=== PATIENT | male | born 1990 | race Caucasian/White ===

== ENCOUNTER 2016-04-19 17:09 | Emergency (ER) | payer OTHER ==
[2016-04-19 17:13] VITALS: RESP 16; TEMP 97.3
--- NOTE | 2016-04-19 17:20 | EDPHY ---
H & P Stated Complaint: lower back pain for a couple of wks HPI/ROS: HPI CHIEF COMPLAINT: Low back pain HISTORY OF PRESENT ILLNESS: This patient very pleasant 25-year-old male denies any significant medical history he presents emergency room with left lower lateral back pain over the past week it has progressively gotten worse. He denies any focal injury. Patient denies any midline pain or saddle anesthesia , bowel or bladder incontinence, leg weakness, or radiation of pain down his leg. He describes the pain as a dull ache left lateral low lumbar region. Nonradiating. It is worse with leg raise as well as cross leg raise. Describes the pain as 6/10 left lateral lumbar region. patient denies complaints denies dysuria, urinary frequency, hematuria. Past Medical History: No significant medical history Past Surgical History: no significant surgical history Social History: denies daily use of drugs alcohol tobacco products Family History: noncontributory ROS REVIEW OF SYSTEMS: A comprehensive 10 point review of systems is otherwise negative aside from elements mentioned in the history of present illness. Exam Constitutional triage nursing summary reviewed, vital signs reviewed, awake/ alert. Eyes normal conjunctivae and sclera, EOMI, PERRLA. HENT normal inspection, atraumatic, moist mucus membranes, no epistaxis, neck supple/ no meningismus, no raccoon eyes. Respiratory clear to auscultation bilaterally, normal breath sounds, no respiratory distress, no wheezing. Cardiovascular rate normal, regular rhythm, no murmur, no edema, distal pulses normal. Gastrointestinal soft, non-tender, no rebound, no guarding, normal bowel sounds, no distension, no pulsatile mass. Genitourinary no CVA tenderness. Musculoskeletal tender palpation paravertebral low lumbar region left-sided, no midline vertebral tenderness, full range of motion, no calf swelling, no tenderness of extremities, no meningismus, good pulses, neurovascularly intact. Skin pink, warm, & dry, no rash, skin atraumatic. Neurologic awake, alert and oriented x 3, AAOx3, moves all 4 extremities equally, motor intact, sensory intact, CN II-XII intact, normal cerebellar, normal vision, normal speech. Psychiatric normal mood/affect. Heme/Lymph/Immune no lymphadenopathy. Differential Diagnosis: Includes but is not limited to in a particular order lumbar strain, annular tear, degenerative joint disease, sciatica, kidney stone Medical Decision Making: this patient had an IV established will be medicated with IV pain control Toradol 30 mg, patient will check a urinalysis for blood as I doubt this is a kidney stone given its low paravertebral lumbar region patient is agreeable for an x-ray of his lumbar spine to rule out compression fracture malalignment. He has no hard signs concerning for acute cauda equina syndrome. Will check blood work. Re-evaluation: ED x-ray: lumbar spine: negative for any acute malalignment or fracture there is muscle spasm seen. 1911: Re-evaluation at this time patient is resting comfortably does tell me that the Toradol did not really improve his pain is requesting more pain medicine. I have ordered him 50 mcg IV fentanyl and 4 mg IV Zofran. He is receiving normal saline. His urinalysis does show 1+ blood, due to this and flank pain he will have a CT abdomen pelvis without contrast rule out kidney stone. I still feel this is most likely lumbar radiculopathy. CT scan of the Abdomen pelvis without IV contrast. The results of the study are negative for acute inflammatory process specifically no kidney stone visualize The study was read by Dr. Lopez. I viewed the images myself on the PACS system. 2001: re-evaluation of this patient at this time Patient is resting comfortably went over the patient's CT scan results and x-ray blood work urinalysis. 1+ blood he will need to follow up with Urology for this. There is no evidence of kidney stone on the CT scan. Lumbar spine x-rays unremarkable. Patient will be discharged from the ER he is comfortable this plan he understands he needs to follow up his primary care doctor he has worsening back pain return to the emergency room. There is no signs of acute cauda equina syndrome at this time. Source: Patient - Personal History Current Tetanus/Diphtheria Vaccine: Unsure Current Tetanus Diphtheria and Acellular Pertussis (TDAP): Unsure - Medical/Surgical History Hx Asthma: No Hx Chronic Respiratory Disease: No Hx Diabetes: No Hx Cardiac Disease: No Hx Renal Disease: No Hx Cirrhosis: No Hx Alcoholism: No Hx HIV/AIDS: No Hx Splenectomy or Spleen Trauma: No Other PMH: DENIES - Social History Smoking Status: Never smoked Constitutional: Initial Vital Signs Temperature (C) 36.3 C 04/19/16 17:11 Heart Rate 58 L 04/19/16 17:11 Respiratory Rate 16 04/19/16 17:11 Blood Pressure 126/80 H 04/19/16 17:11 O2 Sat (%) 95 04/19/16 17:11 O2 Delivery Mode Room Air Allergies/Adverse Reactions: No Known Allergies Allergy (Unverified 08/05/14 15:05) Home Medications: Medication Instructions Recorded Dexamethasone [Decadron 4 MG (*)] 4 mg PO DAILY #4 tab 04/19/16 Diazepam [Valium 5 MG (*)] 5 mg PO TID PRN #15 tab 04/19/16 Hydrocodone/Acetaminophen 1 each PO Q4-6PRN PRN #20 tablet 04/19/16 [Hydrocodon-Acetaminophen 5-325] Ibuprofen [Motrin (*)] 800 mg PO Q6-8PRN #30 tab 04/19/16 Medical Decision Making - Data Points Laboratory Results: Laboratory Results 04/19/16 17:35 04/19/16 17:35 04/19/16 04/19/16 18:15 17:35 WBC 6.64 10^3/uL (3.80-9.50) RBC 5.17 10^6/uL (4.40-6.38) Hgb 14.9 g/dL (13.7-17.5) Hct 43.8 % (40.0-51.0) MCV 84.7 fL (81.5-99.8) MCH 28.8 pg (27.9-34.1) MCHC 34.0 g/dL (32.4-36.7) RDW 13.3 % (11.5-15.2) Plt Count 296 10^3/uL (150-400) MPV 10.5 fL (8.7-11.7) Neut % (Auto) 52.6 % (39.3-74.2) Lymph % (Auto) 37.2 % (15.0-45.0) [place] % (Auto) 7.5 % (4.5-13.0) Eos % (Auto) 1.7 % (0.6-7.6) Baso % (Auto) 0.8 % (0.3-1.7) Nucleat RBC Rel Count 0.0 % (0.0-0.2) Absolute Neuts (auto) 3.50 10^3/uL (1.70-6.50) Absolute Lymphs (auto) 2.47 10^3/uL (1.00-3.00) Absolute Monos (auto) 0.50 10^3/uL (0.30-0.80) Absolute Eos (auto) 0.11 10^3/uL (0.03-0.40) Absolute Basos (auto) 0.05 10^3/uL (0.02-0.10) Absolute Nucleated RBC 0.00 10^3/uL (0-0.01) Immature Gran % 0.2 % (0.0-1.1) Immature Gran # 0.01 10^3/uL (0.00-0.10) Sodium 140 mEq/L (134-144) Potassium 4.5 mEq/L (3.5-5.2) Chloride 103 mEq/L (97-110) Carbon Dioxide 26 mEq/l (22-31) Anion Gap 11 mEq/L (8-16) BUN 19 mg/dL (7-23) Creatinine 1.0 mg/dL (0.7-1.3) Estimated GFR > 60 Glucose 88 mg/dL (70-100) Calcium 9.5 mg/dL (8.5-10.4) Total Bilirubin 0.4 mg/dL (0.1-1.4) Conjugated Bilirubin 0.4 mg/dL (0.0-0.5) Unconjugated Bilirubin 0.0 mg/dL (0.0-1.1) AST 20 IU/L (17-59) ALT 34 IU/L (21-72) Alkaline Phosphatase 88 IU/L (38-126) Total Protein 7.3 g/dL (6.3-8.2) Albumin 4.5 g/dL (3.5-5.0) Urine Color PALE YELLOW Urine Appearance CLEAR Urine pH 6.0 (5.0-7.5) Ur Specific [place] 1.006 (1.002-1.030) Urine Protein NEGATIVE (NEGATIVE) Urine Ketones NEGATIVE (NEGATIVE) Urine Blood 1+ H (NEGATIVE) Urine Nitrate NEGATIVE (NEGATIVE) Urine Bilirubin NEGATIVE (NEGATIVE) Urine Urobilinogen NEGATIVE EU (0.2-1.0) Ur Leukocyte Esterase NEGATIVE (NEGATIVE) Urine RBC 1-3 /hpf (0-3) Urine WBC NONE SEEN /hpf (0-3) Ur Epithelial Cells TRACE /lpf (NONE-1+) Urine Mucus TRACE /lpf (NONE-1+) Ur Culture Indicated? NOT INDICATED (NI) Urine Glucose NEGATIVE (NEGATIVE) Medications Given: Discontinued Medications Fentanyl (Sublimaze) 50 mcg IVP EDNOW ONE Stop: 04/19/16 19:13 Last Admin: 04/19/16 19:19 Dose: 50 mcg Sodium Chloride (Ns) 1,000 mls @ 0 mls/hr IV ONCE ONE PRN Reason: Wide Open Stop: 04/19/16 17:32 Last Admin: 04/19/16 17:40 Dose: 1,000 mls Ketorolac Tromethamine (Toradol) 30 mg IVP EDNOW ONE Stop: 04/19/16 17:32 Last Admin: 04/19/16 17:47 Dose: 30 mg Ondansetron HCl (Zofran) 4 mg IVP EDNOW ONE Stop: 04/19/16 19:13 Last Admin: 04/19/16 19:19 Dose: 4 mg Departure - Departure Disposition: Home, Routine, Self-Care Clinical Impression: Low back pain Qualifiers: Chronicity: acute Back pain laterality: left Sciatica presence: without sciatica Qualifier Code: (M54.5) Low back pain Condition: Good Instructions: Acute Low Back Pain (ED), Lumbar Radiculopathy (ED) Additional Instructions: 1.Return to the emergency room if develops any worsening symptoms questions or concerns. 2. Please follow up with her primary care doctor you may need an MRI of her back. 3. Stay well-hydrated. Take [place] which is a narcotic for pain control, ibuprofen anti-inflammatory, Decadron as a steroid, and Valium as a muscle relaxant please be advised these medications can make her sleepy do not drive or drink alcohol while taking them. Referrals: Alex Ceron MD [Primary Care Provider] - As per Instructions Lito Ambriz MD [Medical Doctor] - As per Instructions Prescriptions: Dexamethasone [Decadron 4 MG (*)] 4 mg PO DAILY #4 tab Hydrocodone/Acetaminophen [Hydrocodon-Acetaminophen 5-325] 1 each PO Q4-6PRN PRN #20 tablet PRN Reason: Pain, Breakthrough Ibuprofen [Motrin (*)] 800 mg PO Q6-8PRN #30 tab Diazepam [Valium 5 MG (*)] 5 mg PO TID PRN #15 tab PRN Reason: Spasms
[2016-04-19] MEDS ORDERED: NS 1,000 ML IV ONE (17:31)
[2016-04-19] MEDS ORDERED: KETOROLAC 30 MG/1 ML SDV IVP ONE (17:31)
[2016-04-19 17:54] LABS: % IMMATURE GRANULYOCYTES 0.2 % (0.0-1.1); ABSOLUTE IMMATURE GRANULOCYTES 0.01 10^3/uL (0.00-0.10); ADD DIFF? NO; ADD MORPH? NO; ADD SCAN? NO; ATYPICAL LYMPHOCYTE FLAG 30 (0-99); FRAGMENT RBC FLAG 0 (0-99); HEMATOCRIT 43.8 % (40.0-51.0); HEMOGLOBIN 14.9 g/dL (13.7-17.5); LEFT SHIFT FLG 0 (0-99); LIPEMIA HEMOLYSIS FLAG 90 (0-99); MEAN CELL HEMOGLOBIN 28.8 pg (27.9-34.1); MEAN CELL VOLUME 84.7 fL (81.5-99.8); MEAN PLATELET VOLUME 10.5 fL (8.7-11.7); PLATELET CLUMPS FLAG 10 (0-99); PLATELET COUNT 296 10^3/uL (150-400); RED BLOOD CELL COUNT 5.17 10^6/uL (4.40-6.38); RED CELL DISTRIBUTION WIDTH 13.3 % (11.5-15.2)
--- NOTE | 2016-04-19 18:08 | DX ---
Lumbar Spine, 4 Views, at 5:23 p.m. Clinical History: 25-year-old male with low back pain for 2 weeks, and no known injury. Comparison Study: None. Findings: There are 5 nonrib-bearing lumbar type vertebral bodies. The vertebral body heights and pos terior alignments are maintained. The disc spaces are preserved. There is straightening of the normal lumbar lordosis, which may reflect underlying muscle spasm. The interpediculate distances are approp riate. There are no pars interarticularis defects or facet malalignment. The sacral arcuate lines are well-contoured, and the SI joints appear normal. Impression: Secondary features suggestive of underlying muscle spasm.
[2016-04-19 18:10] LABS: ALANINE AMINOTRANSFERASE 34 IU/L (21-72); ALBUMIN 4.5 g/dL (3.5-5.0); ALKALINE PHOSPHATASE 88 IU/L (38-126); ANION GAP 11 mEq/L (8-16); ASPARTATE AMINOTRANSFERASE 20 IU/L (17-59); BILIRUBIN,TOTAL 0.4 mg/dL (0.1-1.4); BILIRUBIN-CONJUGATED 0.4 mg/dL (0.0-0.5); CALCIUM 9.5 mg/dL (8.5-10.4); CARBON DIOXIDE 26 mEq/l (22-31); CHLORIDE 103 mEq/L (97-110); GLOMERULAR FILTRATION RATE > 60; GLUCOSE 88 mg/dL (70-100); POTASSIUM 4.5 mEq/L (3.5-5.2); SODIUM 140 mEq/L (134-144); TOTAL PROTEIN 7.3 g/dL (6.3-8.2)
[2016-04-19 18:40] LABS: COLOR PALE YELLOW; LEUKOCYTE ESTERASE,URINE NEGATIVE (NEGATIVE); NITRITE,URINE NEGATIVE (NEGATIVE)
[2016-04-19 18:44] LABS: MUCUS TRACE /lpf (NONE-1+); WBC,URINE NONE SEEN /hpf (0-3)
[2016-04-19] MEDS ORDERED: fentaNYL 100 MCG/2 ML INJ ONE (19:10)
[2016-04-19] MEDS ORDERED: ONDANSETRON 4 MG/2 ML VIAL ONE (19:10)
[2016-04-19] MEDS ORDERED: fentaNYL 100 MCG/2 ML INJ IVP ONE (19:12)
[2016-04-19] MEDS ORDERED: ONDANSETRON 4 MG/2 ML VIAL IVP ONE (19:12)
--- NOTE | 2016-04-19 19:54 | CT ---
CT Abdomen and Pelvis (Renal Stone Study) 1922 hours History: Abdominal pain and left flank pain. Technique: Multidetector helical CT imaging was performed from the kidneys to the urinary bladder wi thout contrast. Images were reconstructed utilizing thin slices and reviewed in multiple planes. Dos e reduction techniques were utilized. CT Abdomen and Pelvis Findings: Kidneys: No renal or ureteral calculi. No significant renal masses. Lung bases: Normal. Liver: Normal. Spleen: Normal. Gallbladder and Bile Ducts: Normal. Pancreas: Normal. Adrenals: Normal. Abdominal Aorta: No aneurysm. Pelvic structures: Normal Bladder: Normal. Appendix: Normal. Bowel Loops: Normal. No bowel obstruction, ascites, or significant retroperitoneal lymphadenopathy. Skeletal system: Vertebral body heights are well-maintained. There are no lytic or sclerotic osseous lesions. Impression: No evidence of urinary tract calculus. These findings were discussed by telephone with the biomedical equipment support specialist with Dr. Davonte Arana at 195 2 hrs. Attention: This CT examination is specifically designed to evaluate patients who are clinically suspe cted of having acute obstructive uropathy. This examination does not use radiographic contrast, and as such, provides only a limited evaluation of the abdomen, pelvis and retroperitoneum. If there is further clinical suspicion for pathological conditions other than obstructive uropathy, a complete C T evaluation of the abdomen and pelvis utilizing intravenous, oral, and rectal contrast should be con sidered.
[2016-04-19] MEDS ORDERED: HYDROmorphONE/DILAUDID 1 MG/ML SYR IVP ONE (20:24)
[2016-04-19] MEDS ORDERED: DIAZEPAM 10 MG/2 ML SYR IVP ONE (20:24)
[2016-04-19 21:36] VITALS: BP 135/75; PULSE 58; O2SAT 94
== END 2016-04-19 21:35 | disposition home or self-care (01) ==
DX: M54.5 Low back pain (principal)
CPT/HCPCS: 96374; J1170; J1885; J2405; J3010